=== PATIENT | male | born 1945 | race African-American/Black ===

== ENCOUNTER 2022-11-23 02:12 | Inpatient (IN) | payer MEDICARE ==
[~2022-11-23] VITALS: Ht 177.8 cm; Wt 108.9 kg
[2022-11-23] MEDS ORDERED: ONDANSETRON HCL 4MG/2ML INJ IV STA (02:19)
[2022-11-23] MEDS ORDERED: NITROGLYCERIN OINT 1GM/INCH UDPKT TD ONE (02:30)
[2022-11-23] MEDS ORDERED: FUROSEMIDE 40MG/4ML VIAL IV ONE (02:30)
[2022-11-23 02:45] LABS: BASOPHILS % 1.3 % (0.0-2.0); EOSINOPHILS % 2.7 % (0.0-5.0); HEMATOCRIT. 43.9 % (42.0-52.0); HEMOGLOBIN. 15.3 g/dL (14.0-18.0); LYMPHOCYTES % 27.7 % (20.0-50.0); MEAN CORPUSCULAR HEMOGLOBIN 30.8 pg (28.0-32.0); MEAN CORPUSCULAR VOLUME 88.4 fL (80.0-94.0); MEAN PLATELET VOLUME 10.4 fl (7.4-10.4); MONOCYTES % 7.3 % (2.0-8.0); PLATELET 139 x1000/uL (130-400); RED BLOOD CELL COUNT 4.97 mill/uL (4.7-6.1); RED CELL DISTRIBUTION WIDTH 13.8 % (11.6-14.6)
[2022-11-23 02:54] LABS: CHLORIDE 109 mEq/L (98-107)
[2022-11-23 04:11] LABS: BG BASE EXCESS -4.7 mmol/L (-2.0-2.0); BG CARBOXYHEMOGLOBIN 0.6 % (0.5-1.5); BG DEOXYHEMOGLOBIN 1.1 % (0.0-5.0); BG FRACTION INSPIRED OXYGEN 100; BG HCO3 ACT 21.9 mmol/L (22.0-26.0); BG METHEMOGLOBIN 0.5 % (0.0-1.5); BG OXYGEN SATURATION 98.9 % (92.0-98.5); BG OXYHEMOGLOBIN 97.8 % (94.0-97.0); BG PH 7.296 (7.350-7.450); BG PO2 157.9 mmHg (75.0-100.0); BG SAMPLE SITE RIGHT RADIAL; BG VENT MODE MASK - NRB
[2022-11-23] MEDS ORDERED: ONDANSETRON HCL 4MG/2ML INJ IV PRN (05:45)
[2022-11-23] MEDS ORDERED: CLONIDINE 0.1MG TABLET PO PRN (05:45)
[2022-11-23] MEDS ORDERED: DOCUSATE SODIUM 100MG CAPSULE PO PRN (05:45)
[2022-11-23] MEDS ORDERED: IPRATROPIUM/ALBUTEROL 0.5-3(2.5)MG/3ML NEB HHN PRN (05:45)
[2022-11-23] MEDS ORDERED: ACETAMINOPHEN 325MG TABLET PO PRN ×2 (05:45)
[2022-11-23] MEDS ORDERED: MAGNESIUM/ALUMINUM HYDROXIDE/SIMETHICONE 30ML UDC PO PRN (05:45)
[2022-11-23] MEDS ORDERED: GUAIFENESIN 200MG/10ML SUGAR FREE UDC PO PRN (05:45)
[2022-11-23] MEDS ORDERED: PIPERACILLIN/TAZ 3.375G PREMIX 50 ML IV NR (06:00)
[2022-11-23] MEDS ORDERED: VANCOMYCIN 1.25GM PMX (XELLIA) 250 ML IV NR (06:15)
[2022-11-23] MEDS ORDERED: AZITHROMYCIN 500 MG in DEXT 5% WATER 250 ML IV NR (06:30)
[2022-11-23 06:48] LABS: CLARITY URINE CLEAR (CLEAR); COLOR URINE YELLOW (YELLOW); KETONES URINE NEGATIVE (NEGATIVE); LEUKOCYTE ESTERASE URINE NEGATIVE (NEGATIVE); NITRITE URINE NEGATIVE (NEGATIVE); OCCULT BLOOD URINE NEGATIVE (NEGATIVE); PH URINE 5.5 (4.5-8.0); PROTEIN URINE 1+ (NEGATIVE); SPECIFIC GRAVITY URINE 1.009 (1.005-1.030)
[2022-11-23 06:55] LABS: VITAMIN B12 SERUM 716 pg/mL (211-911)
[2022-11-23 07:00] LABS: *AMPHETAMINES SCREEN URINE NEGATIVE (NEGATIVE); *BARBITURATES SCREEN URINE NEGATIVE (NEGATIVE); *BENZODIAZEPINES SCREEN URINE NEGATIVE (NEGATIVE); *COCAINE SCREEN URINE NEGATIVE (NEGATIVE); CANNABINOID URINE SCREEN NEGATIVE (NEGATIVE); METHADONE URINE SCREEN NEGATIVE (NEGATIVE); OPIATES URINE SCREEN NEGATIVE (NEGATIVE); PHENCYCLIDINE URINE SCREEN NEGATIVE (NEGATIVE)
[2022-11-23 07:01] LABS: CHLORIDE 106 mEq/L (98-107)
[2022-11-23] MEDS ORDERED: KETOROLAC 15MG/ML VIAL IV PRN (07:15)
[2022-11-23] MEDS ORDERED: ZOLPIDEM TARTRATE 5MG TABLET PO PRN (07:15)
[2022-11-23] MEDS ORDERED: NITROGLYCERIN 0.4MG TABLET SL SL PRN (07:15)
[2022-11-23] MEDS ORDERED: ENOXAPARIN 40MG/0.4ML SYR SUBCUT SCH (09:00)
[2022-11-23] MEDS: SPIRONOLACTONE 25MG TABLET PO SCH ×2 (09:00→22:06)
[2022-11-23 09:04] LABS: ETHANOL BLOOD < 10 mg/dL; TOTAL IRON BINDING CAPACITY 269 ug/dL (250-450)
[2022-11-23] MEDS: AZITHROMYCIN 500MG/250ML 250 ML IV SCH (10:53)
[2022-11-23] MEDS: ZINC SULFATE 220 MG ( 50 ) CAPSULE PO SCH (10:54)
[2022-11-23] MEDS: ASPIRIN 325MG EC TABLET PO SCH (10:54)
[2022-11-23] MEDS: FAMOTIDINE 20MG TABLET PO SCH ×3 (10:54→22:06)
[2022-11-23] MEDS: ASCORBIC ACID 500 MG TABLET PO SCH ×2 (10:54→22:06)
[2022-11-23] MEDS: GUAIFENESIN 600MG ER TABLET PO SCH ×2 (10:54→22:06)
[2022-11-23] MEDS: IPRATROPIUM/ALBUTEROL 0.5-3(2.5)MG/3ML NEB HHN SCH (14:51)
[2022-11-23] MEDS ORDERED: DEXTROSE 50% WATER 50ML SYRINGE IV PRN (15:15)
[2022-11-23] MEDS: FUROSEMIDE 40MG/4ML VIAL IV SCH (17:00)
[2022-11-23] MEDS: BLOOD SUGAR DIAGNOSTIC STRIP TEST SCH ×2 (17:53→21:00)
[2022-11-23] MEDS: INSULIN LISPRO 100 UNITS/ML SUBCUT SCH ×2 (18:20→21:00)
[2022-11-23] MEDS: VANCOMYCIN 750MG PREMIX 150 ML IV SCH (19:01)
[2022-11-23] MEDS ORDERED: ATOR-2 PO (21:30)
[2022-11-23] MEDS ORDERED: METF-414 PO (21:30)
[2022-11-23] MEDS ORDERED: LISI10TA26 PO (21:30)
[2022-11-23] MEDS ORDERED: TIZA-204 PO (21:30)
[2022-11-23] MEDS ORDERED: FINA5TAB11 PO (21:30)
[2022-11-23] MEDS ORDERED: TERA2CAP4 PO (21:30)
[2022-11-23 21:32] VITALS: BP 138/59
[2022-11-23] MEDS: ENOXAPARIN 30MG/0.3ML SYR SUBCUT SCH (22:07)
[2022-11-23 22:32] VITALS: BP 138/59
[2022-11-23 23:59] VITALS: BP 138/84
[2022-11-24] MEDS: IPRATROPIUM/ALBUTEROL 0.5-3(2.5)MG/3ML NEB HHN SCH
[2022-11-24 04:04] VITALS: BP 152/86
[2022-11-24] MEDS: AZITHROMYCIN 500MG/250ML 250 ML IV SCH (06:05)
[2022-11-24] MEDS: VANCOMYCIN 750MG PREMIX 150 ML IV SCH ×2 (06:05→17:24)
[2022-11-24] MEDS: BLOOD SUGAR DIAGNOSTIC STRIP TEST SCH ×4 (06:06→21:05)
[2022-11-24] MEDS: INSULIN LISPRO 100 UNITS/ML SUBCUT SCH ×4 (06:09→21:27)
[2022-11-24 07:15] LABS: CHLORIDE 105 mEq/L (98-107)
[2022-11-24 07:28] LABS: HEMATOCRIT. 41.8 % (42.0-52.0); HEMOGLOBIN. 14.6 g/dL (14.0-18.0); LYMPHOCYTES % 22.6 % (20.0-50.0); MEAN CORPUSCULAR HEMOGLOBIN 32.1 pg (28.0-32.0); MEAN CORPUSCULAR VOLUME 92.3 fL (80.0-94.0); MEAN PLATELET VOLUME 11.2 fl (7.4-10.4); NEUTROPHILS % 63.4 % (40.0-76.0); PLATELET 114 x1000/uL (130-400); RED BLOOD CELL COUNT 4.53 mill/uL (4.7-6.1); RED CELL DISTRIBUTION WIDTH 13.5 % (11.6-14.6)
[2022-11-24 07:33] LABS: HDL CHOLESTEROL 50 mg/dL (40-59); LDL CHOLESTEROL 59 mg/dL (5-100); PHOSPHORUS 4.1 mg/dL (2.5-4.9); T4 FREE 1.11 ng/dL (0.76-1.46)
[2022-11-24 08:00] VITALS: BP 166/93
[2022-11-24] MEDS: FUROSEMIDE 40MG/4ML VIAL IV SCH ×2 (08:38→17:22)
[2022-11-24] MEDS: GUAIFENESIN 600MG ER TABLET PO SCH ×2 (08:38→21:19)
[2022-11-24] MEDS: ASCORBIC ACID 500 MG TABLET PO SCH ×2 (08:38→21:16)
[2022-11-24] MEDS: ZINC SULFATE 220 MG ( 50 ) CAPSULE PO SCH (08:39)
[2022-11-24] MEDS: ASPIRIN 325MG EC TABLET PO SCH (08:39)
[2022-11-24] MEDS: FAMOTIDINE 20MG TABLET PO SCH ×3 (08:39→21:16)
[2022-11-24] MEDS: SPIRONOLACTONE 25MG TABLET PO SCH ×2 (08:39→21:36)
[2022-11-24] MEDS: ENOXAPARIN 30MG/0.3ML SYR SUBCUT SCH ×2 (08:40→21:21)
[2022-11-24] MEDS ORDERED: IPRATROPIUM BROMIDE (0.02%) 0.5MG/2.5ML NEB HHN PRN (09:15)
[2022-11-24] MEDS ORDERED: ALBUTEROL (0.083%) 2.5MG/3ML NEB HHN PRN (09:15)
[2022-11-24 10:25] LABS: BG BASE EXCESS 0.2 mmol/L (-2.0-2.0); BG CARBOXYHEMOGLOBIN 1.2 % (0.5-1.5); BG DEOXYHEMOGLOBIN 4.6 % (0.0-5.0); BG FRACTION INSPIRED OXYGEN 21; BG HCO3 ACT 25.4 mmol/L (22.0-26.0); BG METHEMOGLOBIN 0.2 % (0.0-1.5); BG OXYGEN SATURATION 95.3 % (92.0-98.5); BG PCO2 43.3 mmHg (35.0-45.0); BG PH 7.387 (7.350-7.450); BG PO2 77.1 mmHg (75.0-100.0); BG SAMPLE SITE RIGHT RADIAL; BG TOTAL HEMOGLOBIN 16.2 g/dL (12.0-18.0); BG VENT MODE ROOM AIR
[2022-11-24 11:52] VITALS: BP 114/93
[2022-11-24] MEDS: IPRATROPIUM BROMIDE (0.02%) 0.5MG/2.5ML NEB HHN SCH ×2 (15:24→20:11)
[2022-11-24] MEDS: ALBUTEROL (0.083%) 2.5MG/3ML NEB HHN SCH ×2 (15:24→20:11)
[2022-11-24 16:00] VITALS: BP 127/97
[2022-11-24 20:37] VITALS: BP 121/60
[2022-11-25 00:29] VITALS: BP 150/96
[2022-11-25] MEDS: IPRATROPIUM BROMIDE (0.02%) 0.5MG/2.5ML NEB HHN SCH ×4 (02:18→20:43)
[2022-11-25 04:00] VITALS: BP 128/82
[2022-11-25] MEDS: VANCOMYCIN 750MG PREMIX 150 ML IV SCH (05:26)
[2022-11-25] MEDS: AZITHROMYCIN 500MG/250ML 250 ML IV SCH (07:47)
[2022-11-25] MEDS: BLOOD SUGAR DIAGNOSTIC STRIP TEST SCH ×4 (07:48→21:23)
[2022-11-25 08:00] VITALS: BP 116/79
[2022-11-25 08:13] LABS: CHLORIDE 102 mEq/L (98-107)
[2022-11-25] MEDS: ALBUTEROL (0.083%) 2.5MG/3ML NEB HHN SCH ×3 (08:15→20:43)
[2022-11-25] MEDS: FUROSEMIDE 40MG/4ML VIAL IV SCH ×2 (08:16→17:23)
[2022-11-25] MEDS: ZINC SULFATE 220 MG ( 50 ) CAPSULE PO SCH (08:17)
[2022-11-25] MEDS: FAMOTIDINE 20MG TABLET PO SCH ×2 (08:17→21:22)
[2022-11-25] MEDS: ASCORBIC ACID 500 MG TABLET PO SCH ×2 (08:17→21:20)
[2022-11-25] MEDS: ASPIRIN 325MG EC TABLET PO SCH (08:17)
[2022-11-25] MEDS: GUAIFENESIN 600MG ER TABLET PO SCH ×2 (08:18→21:22)
[2022-11-25] MEDS: SPIRONOLACTONE 25MG TABLET PO SCH ×2 (08:18→21:22)
[2022-11-25] MEDS: ENOXAPARIN 30MG/0.3ML SYR SUBCUT SCH ×2 (08:19→21:24)
[2022-11-25] MEDS: INSULIN LISPRO 100 UNITS/ML SUBCUT SCH ×4 (08:20→21:00)
[2022-11-25 08:24] LABS: VANCOMYCIN TROUGH 10.7 ug/mL (5.0-10.0)
[2022-11-25 12:00] VITALS: BP 116/76
[2022-11-25 16:00] VITALS: BP 139/84
[2022-11-25] MEDS: VANCOMYCIN 1G PREMIX 200 ML IV SCH (17:37)
[2022-11-25 20:47] VITALS: BP 161/92
[2022-11-26 00:28] VITALS: BP 139/84
[2022-11-26] MEDS: ALBUTEROL (0.083%) 2.5MG/3ML NEB HHN SCH ×2 (01:53→08:35)
[2022-11-26] MEDS: IPRATROPIUM BROMIDE (0.02%) 0.5MG/2.5ML NEB HHN SCH ×2 (01:54→08:35)
[2022-11-26 04:00] VITALS: BP 123/55
[2022-11-26] MEDS: BLOOD SUGAR DIAGNOSTIC STRIP TEST SCH (05:56)
[2022-11-26] MEDS ORDERED: AZITHROMYCIN 500MG in DEXTROSE 5% WATER 250ML IV SCH (06:00)
[2022-11-26] MEDS: VANCOMYCIN 1G PREMIX 200 ML IV SCH (07:09)
[2022-11-26 08:00] VITALS: BP 124/62
[2022-11-26] MEDS: FUROSEMIDE 40MG/4ML VIAL IV SCH (08:35)
[2022-11-26] MEDS: ASPIRIN 325MG EC TABLET PO SCH (08:35)
[2022-11-26] MEDS: ASCORBIC ACID 500 MG TABLET PO SCH (08:35)
[2022-11-26] MEDS: SPIRONOLACTONE 25MG TABLET PO SCH (08:35)
[2022-11-26] MEDS: ZINC SULFATE 220 MG ( 50 ) CAPSULE PO SCH (08:35)
[2022-11-26] MEDS: GUAIFENESIN 600MG ER TABLET PO SCH (08:35)
[2022-11-26] MEDS: ENOXAPARIN 30MG/0.3ML SYR SUBCUT SCH (08:36)
[2022-11-26] MEDS: INSULIN LISPRO 100 UNITS/ML SUBCUT SCH (08:37)
[2022-11-26] MEDS: FAMOTIDINE 20MG TABLET PO SCH (08:41)
[2022-11-26] MEDS ORDERED: FURO-151 MT (10:11)
[2022-11-26] MEDS ORDERED: SPIR25TA MT (10:11)
[2022-11-26 10:16] VITALS: BP 123/82
== END 2022-11-26 12:25 | disposition home or self-care (01) | DRG 871 ==
LOC: ER 02:12 → EDBD 02:12 → 7WST 04:59 → SUPCPDRO 07:05 → ENRESERV 19:48
PROVIDERS: ADMIT Internal Medicine; ATTEND Internal Medicine
DX: A41.9 Sepsis, unspecified organism (principal); I50.43 Acute on chronic combined systolic (congestive) and diastolic (congestive) heart failure; J96.01 Acute respiratory failure with hypoxia; J18.9 Pneumonia, unspecified organism; E46 Unspecified protein-calorie malnutrition; I11.0 Hypertensive heart disease with heart failure; Z68.34 Body mass index [BMI] 34.0-34.9, adult; Z20.822 Contact with and (suspected) exposure to COVID-19; E11.9 Type 2 diabetes mellitus without complications
CPT/HCPCS: 36415; 36600; 71045; 80048; 80053; 80061; 80202; 80305; 80320; 81003; 82375; 82607; 82746; 82805; 82962; 83036; 83540; 83550; 83605; 83735; 83880; 84100; 84145; 84439; 84443; 84484; 85025; 85379; 87426; 87804; 93005; 93306; 93970; 94640; 99291; C9803; J0456; J1650; J1815; J1940; J2405; J2543; J3370; J7060; G0480